=== PATIENT | male | born 1985 | race Caucasian/White ===

== ENCOUNTER 2017-02-13 13:51 | Inpatient (IN) | payer OTHER ==
[~2017-02-13] VITALS: Ht 185.4 cm; Wt 87.5 kg
[2017-02-13 15:16] LABS: *AMPHETAMINE, URINE POSITIVE (NEGATIVE); *BARBITURATE, URINE NEGATIVE (NEGATIVE); *CANNABINOID, URINE POSITIVE (NEGATIVE); *COCCAINE, URINE NEGATIVE (NEGATIVE); *OPIATE, URINE NEGATIVE (NEGATIVE); *PHENCYCLIDINE SCREEN,URINE NEGATIVE (NEGATIVE)
--- NOTE | 2017-02-13 16:00 | NUR ---
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 He is the primary source of information. Patient is admitted under the care of Dr. Benedict to room 314. Urine provided by patient for urine drug screen. Patient appears to be anxious, nervous and restless. Patient denies any allergies. Patient reported history of seizures 2 years ago due to Benzodiazepine withdrawals. Admitting vital signs are as follows; BP 141/94, HR 93, Temp 96.8, respirations 18, SPO2 97%, weight 193 lbs and Height of 6'1. Educated patient regarding unit protocols and policies, patient verbalized understanding.
[2017-02-13 16:08] VITALS: BP 138/85
[2017-02-13] MEDS ORDERED: BACLOFEN 20 MG TABLET PO PRN (16:15)
[2017-02-13] MEDS ORDERED: DIAZEPAM 5 MG TABLET PO PRN (16:15)
[2017-02-13] MEDS ORDERED: THIAMINE HCL 200 MG/2 ML VIAL IM ONE (16:15)
[2017-02-13] MEDS ORDERED: DICYCLOMINE HCL 20 MG TABLET PO PRN (16:15)
[2017-02-13] MEDS ORDERED: MAGNESIUM HYDROXIDE 30 ML LIQUID UDC PO PRN (16:15)
[2017-02-13] MEDS ORDERED: LORAZEPAM 2 MG/1 ML VIAL IM PRN (16:15)
[2017-02-13] MEDS ORDERED: ACETAMINOPHEN 325 MG TABLET PO PRN (16:15)
[2017-02-13] MEDS ORDERED: MAG HYDROX/AL HYDROX/SIMETH 30 ML LIQUID UDC PO PRN (16:15)
[2017-02-13] MEDS ORDERED: IBUPROFEN 600 MG TABLET PO PRN (16:15)
[2017-02-13] MEDS ORDERED: ONDANSETRON 4 MG/2 ML VIAL IM PRN (16:15)
[2017-02-13] MEDS ORDERED: LOPERAMIDE HCL 2 MG CAPSULE PO PRN ×2 (16:15)
[2017-02-13] MEDS ORDERED: ONDANSETRON ODT 4 MG TAB.RAPDIS SL PRN (16:15)
[2017-02-13] MEDS ORDERED: CLONIDINE HCL 0.1 MG TABLET PO PRN (16:15)
[2017-02-13] MEDS ORDERED: DIAZEPAM 10 MG TABLET PO PRN ×2 (16:15)
[2017-02-13] MEDS ORDERED: LURA40TA PO (16:34)
[2017-02-13] MEDS ORDERED: ALPR2TAB7 PO (16:34)
[2017-02-13 16:53] LABS: BASOPHILS # (AUTO) 0.1 K/uL (0.0-8.0); BASOPHILS % (AUTO) 1.4 % (0.0-2.0); EOSINOPHILS # (AUTO) 0.3 K/uL (0.0-0.7); EOSINOPHILS % (AUTO) 5.1 % (0.0-7.0); HEMATOCRIT 48.3 % (40-50); HEMOGLOBIN 15.7 G/DL (14.0-18.0); LYMPHOCYTES # (AUTO) 1.7 K/UL (0.8-4.8); LYMPHOCYTES % (AUTO) 29.1 % (20.5-51.5); MEAN CORPUSCULAR HEMOGLOBIN 30.3 UUG (27.0-31.0); MEAN CORPUSCULAR HGB CONC 33 g/dL (32.0-37.0); MEAN CORPUSCULAR VOLUME 92.9 FL (82.0-92.0); MONOCYTES # (AUTO) 0.5 K/UL (0.1-1.30); MONOCYTES % (AUTO) 9.2 % (0.0-11.0); NEUTROPHILS # (AUTO) 3.3 K/UL (1.8-8.9); NEUTROPHILS % (AUTO) 55.2 % (38.5-71.5); PLATELET COUNT (AUTO) 223 K/UL (150-450); WHITE BLOOD COUNT (AUTO) 5.9 K/UL (4.0-11.2)
[2017-02-13 17:18] LABS: BILIRUBIN,TOTAL 0.3 mg/dL (0.2-1.0); CREATININE 1.1 mg/dL (0.6-1.3); TOTAL PROTEIN, SERUM 7.4 g/dL (6.4-8.2)
--- NOTE | 2017-02-13 17:31 | NUR ---
PRN medication; Patient's current CIWA is 6 manifested by anxiety, agitation, sweating, headache. PRN Valium 5mg PO given for CIWA of 6. Will continue to monitor patient for effectiveness of medication.
[2017-02-13 17:40] LABS: MAGNESIUM 2.1 mg/dL (1.8-2.4)
[2017-02-13] MEDS ORDERED: BECL8.7A6 IH (18:05)
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
--- NOTE | 2017-02-13 18:31 | NUR ---
Re-assessment; Patient's current CIWA score is 4. PRN medication is effective.
--- NOTE | 2017-02-13 19:24 | NUR ---
End of shift note; Patient is AOx4. Patient to start modified Valium taper tonight. Patient remained compliant with treatment plan and medication regime. Patient is on fall and seizure precaution. Met all patient's needs.
[2017-02-13] MEDS ORDERED: MISCELLANEOUS MED XX PRN (19:45)
[2017-02-13 20:00] VITALS: BP 134/86
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
[2017-02-13] MEDS ORDERED: DIAZEPAM 10 MG TABLET PO SCH (21:00)
[2017-02-13] MEDS: LATUDA 20MG PO SCH (21:04)
[2017-02-13] MEDS: diphenhydrAMINE 50 MG CAPSULE PO PRN (22:18)
--- NOTE | 2017-02-13 22:37 | NUR ---
PRN BENADRYL ADMINISTRATION PATIENT REQUESTS FOR SLEEP AID. PRN BENADRYL GIVEN. WILL MONITOR FOR EFFECTIVENESS Addendum: 02/13/17 at 7954 by KAREEM FLORES LVN ERROR: PATIENT WAS GIVEN PRN BENADRYL AT 7269
--- NOTE | 2017-02-13 23:00 | NUR ---
TIFFANIE DIOR RE-ASSESSMENT PATIENT ASLEEP AT THIS TIME. RESPIRATION EVEN AND UNLABORED. SAFETY MEASURES IN PLACE. CALL LIGHT IN REACH. WILL CONTINUE TO MONITOR.
[2017-02-14] VITALS: BP 134/86
[2017-02-14 05:18] VITALS: BP 123/72
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
--- NOTE | 2017-02-14 07:30 | NUR ---
START OF SHIFT Pt 31 y/o male admitted for benzodiazepine withdrawal. Pt received in room on bed with eyes closed resting, but easily arousable to name. Pt alert and oriented to name, place, and time. Perrla. Skin warm and slightly moist to touch. Respirations even and unlabored. It was reported that pt slept for 7 hours last night. Bed on lowest position with side rails x2 up for safety. Call light within reach. No distress noted at this time.
[2017-02-14 08:00] VITALS: BP 142/79
[2017-02-14] MEDS ORDERED: TUBERCULIN,PURIF.PROT.DERIV. 5 TU/0.1 ML TEST ID ONE (09:00)
[2017-02-14] MEDS ORDERED: PATIENT MAY USE OWN MED- MD OK INH SCH (09:00)
[2017-02-14] MEDS: GABAPENTIN 300 MG CAPSULE PO SCH ×2 (09:20→21:08)
[2017-02-14] MEDS: LATUDA 20MG PO SCH ×2 (09:20→21:07)
[2017-02-14] MEDS: MULTIVITAMINS,THERAPEUTIC TABLET PO SCH (09:21)
[2017-02-14] MEDS: DIAZEPAM 10 MG TABLET PO SCH ×4 (09:21→21:07)
[2017-02-14] MEDS: THIAMINE HCL 100 MG TABLET PO SCH (09:21)
[2017-02-14] MEDS: FOLIC ACID 1 MG TABLET PO SCH (09:28)
[2017-02-14 13:02] VITALS: BP 141/94
--- NOTE | 2017-02-14 14:38 | NUR ---
Therapist prompted client about group times. Client stated he will try to attend if he is not too tired.
[2017-02-14 16:57] VITALS: BP 106/62
--- NOTE | 2017-02-14 18:00 | NUR ---
END OF SHIFT Pt 31 y/o male admitted for benzodiazepine withdrawal. Pt alert and oriented to name, place, and time. Perrla. Skin warm and slightly moist to touch. Respirations even and unlabored. Bilateral hand tremors noted. Pt observed mostly in room this morning. Pt attended all group activities. Pt was seen by MD today. Pt medication compliant and tolerated well. No ASE noted. Bed on lowest position with side rails x2 up for safety. Call light within reach. No distress noted at this time.
--- NOTE | 2017-02-14 19:15 | NUR ---
START OF SHIFT : Pt 31 y/o male admitted for benzodiazepine withdrawal on 02/13/2017. Pt received in room on bed with resting, but easily arousable to name. Pt alert and oriented to name, place, and time. Perrla. Skin warm and slightly moist to touch, mild tremor observed. Respirations =16/min, even and unlabored. LAST COWS=4 at 16:00. Safety measures in place : bed on lowest position with side rails x2 up for safety, call light within reach. Will continue to monitor closely and offer help.
[2017-02-14 20:00] VITALS: BP 126/83
[2017-02-15 06:06] LABS: HEPATITIS B SURFACE AG Negative (Negative)
--- NOTE | 2017-02-15 06:39 | NUR ---
END OF SHIFT : Pt 31 y/o male admitted for benzodiazepine withdrawal on 02/13/2017. Pt received in room on bed with resting, but easily arousable to name. Pt alert and oriented to name, place, and time. Perrla. Skin warm and slightly moist to touch, mild tremor observed. Pt remains compliant with the treatment plan. No PRNs were given during my shift. V/S remain WNL. RR=16, even and unlabored, lungs clear upon auscultation, abdomen soft and non- distended. Pt denies nausea, vomiting and diarrhea. LAST CIWA=3 at 0400 , [id number]=[id number] ml, voided x3 , slept 6 hours. Safety measures in place : bed on lowest position with side rails x2 up for safety, call light within reach. Will continue to monitor closely and offer help.
--- NOTE | 2017-02-15 07:41 | NUR ---
START OF SHIFT Pt 31 y/o male admitted for benzodiazepine withdrawal. Pt received in room on bed with eyes closed resting, but easily arousable to name. Pt alert and oriented to name, place, and time. Perrla. Skin warm and slightly moist to touch. Respirations even and unlabored. Bilateral hand tremors noted slightly. It was reported that pt slept for 6 hours last night. Bed on lowest position with side rails x2 up for safety. Call light within reach. No distress noted at this time.
[2017-02-15 08:00] VITALS: BP 108/62
[2017-02-15] MEDS: MULTIVITAMINS,THERAPEUTIC TABLET PO SCH (08:45)
[2017-02-15] MEDS: DIAZEPAM 10 MG TABLET PO SCH ×3 (08:45→21:21)
[2017-02-15] MEDS: THIAMINE HCL 100 MG TABLET PO SCH (08:46)
[2017-02-15] MEDS: FOLIC ACID 1 MG TABLET PO SCH (08:46)
[2017-02-15] MEDS: GABAPENTIN 300 MG CAPSULE PO SCH ×3 (08:46→21:21)
[2017-02-15] MEDS: LATUDA 20MG PO SCH ×2 (08:46→21:21)
--- NOTE | 2017-02-15 11:56 | NUR ---
ONE TIME DOSE Pt was seen by . Ciwa=10. Valium po once per MD order given and tolerated well.
[2017-02-15] MEDS ORDERED: DIAZEPAM 10 MG TABLET PO SCH (12:00)
[2017-02-15] MEDS ORDERED: CLONIDINE HCL 0.1 MG TABLET PO ONE (12:00)
[2017-02-15 12:13] VITALS: BP 130/74
--- NOTE | 2017-02-15 12:56 | NUR ---
ONE TIME DOSE EVAL Pt with ciwa=4 noted. Pt observed in room laying on bed watching television.
[2017-02-15 16:00] VITALS: BP 128/72
--- NOTE | 2017-02-15 18:37 | NUR ---
END OF SHIFT Pt 31 y/o male admitted for benzodiazepine withdrawal. Pt alert and oriented to name, place, and time. Perrla. Skin warm and moist to touch. Respirations even and unlabored. Bilateral hand tremors noted. Pt with periods of anxiety this morning. Pt observed mostly in room this morning. Pt attended group activity this morning. Pt was seen by MD today. Pt medication compliant and tolerated well. No ASE noted. Bed on lowest position with side rails x2 up for safety. Call light within reach. No distress noted at this time.
--- NOTE | 2017-02-15 19:15 | NUR ---
START OF SHIFT : Pt 31 y/o male admitted for benzodiazepine withdrawal on 02/13/2017. Pt alert and oriented to name, place, and time. Perrla. Skin warm and slightly moist to touch, mild tremor observed. Respirations =16/min, even and unlabored. LAST COWS=3 at 16:00. Pt medication compliant and tolerated well. Safety measures in place : bed on lowest position with side rails x2 up for safety, call light within reach. Will continue to monitor closely and offer help.
[2017-02-15 20:00] VITALS: BP 120/85
[2017-02-15] MEDS: CLONIDINE HCL 0.1 MG TABLET PO SCH (21:22)
--- NOTE | 2017-02-16 06:43 | NUR ---
END OF SHIFT NOTE : Pt 31 y/o male admitted for benzodiazepine withdrawal on 02/13/2017. Pt alert and oriented to name, place, and time. Perrla. Skin warm and slightly moist to touch, mild tremor observed. Pt remains compliant with the treatment plan. No PRNs were given during my shift. V/S remain WNL. RR=16, even and unlabored, lungs clear upon auscultation, abdomen soft and non- distended. Pt denies nausea, vomiting and diarrhea. CIWA and COWS taken when pt. is alert during the night, LAST CIWA= 3 at 0400 , [id number] ml, voided x2 , slept 7 hours. Safety measures in place : bed on lowest position with side rails x2 up for safety, call light within reach. Will continue to monitor closely and offer help.
--- NOTE | 2017-02-16 07:25 | NUR ---
Start of Shift Commercial Green Retrofit Architect received report on 31 year old male admitted on 02/13/17 for Xanax and Meth detoxification. Pt has NKA, is a full code and eats a regular diet. PMH of anxiety, Bipolar, asthma and a seizure 2 years ago. Pt currently on a Valium taper, tolerating well. Last CIWA 3 per night nurse. Commercial Green Retrofit Architect encounters pt resting in bed with eyes closed. Respirations even and unlabored. Rise and fall of cheat noted. Bed in low position with wheels locked and side rails up x2, call light within reach. Will continue to monitor, support and encourage according to plan of care.
[2017-02-16 08:30] VITALS: BP 98/55
[2017-02-16] MEDS: CLONIDINE HCL 0.1 MG TABLET PO SCH ×2 (09:00→21:10)
[2017-02-16] MEDS: DIAZEPAM 5 MG TABLET PO SCH ×4 (09:24→21:10)
[2017-02-16] MEDS: THIAMINE HCL 100 MG TABLET PO SCH (09:24)
[2017-02-16] MEDS: MULTIVITAMINS,THERAPEUTIC TABLET PO SCH (09:24)
[2017-02-16] MEDS: GABAPENTIN 300 MG CAPSULE PO SCH ×3 (09:24→21:10)
[2017-02-16] MEDS: LATUDA 20MG PO SCH ×2 (09:24→21:11)
[2017-02-16] MEDS: FOLIC ACID 1 MG TABLET PO SCH (09:24)
--- NOTE | 2017-02-16 09:49 | NUR ---
Pt Endorsement Aluminum Sheet Cutter endorsed care of pt to MABEL Bauer.
--- NOTE | 2017-02-16 10:00 | NUR ---
Endorsement received; Endorsement received from previous nurse. Patient is a 31 year old male admitted on 02/13/17 for Benzo/Meth dependence. Patient was placed on 5 day Valium taper. Patient reported history of anxiety, bipolar disorder, asthma, seizure 2 years ago d/t withdrawals. Patient is on fall and seizure precaution. Bed in lowest position, call light within reach. Will continue to monitor patient.
[2017-02-16 12:00] VITALS: BP 105/62
[2017-02-16 16:00] VITALS: BP 101/74
--- NOTE | 2017-02-16 18:32 | NUR ---
End of shift note; Patient is AOX4. Patient is a 31 year old male admitted on 02/13/17 for Benzo/Meth dependence. Patient was placed on 5 day Valium taper. Patient reported history of anxiety, bipolar disorder, asthma, seizure 2 years ago d/t withdrawals. Patient is on fall and seizure precaution. Patient remained compliant with treatment plan. Medications were effective in reducing withdrawal symptoms. Met all needs.
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
[2017-02-16 20:30] VITALS: BP 145/85
[2017-02-16] MEDS: diphenhydrAMINE 50 MG CAPSULE PO PRN (21:10)
--- NOTE | 2017-02-16 21:10 | NUR ---
PRN Medication Administration Patient is verbalizing inability of falling asleep. PRN Benadryl administered as per order. Will continue to monitor.
--- NOTE | 2017-02-16 22:00 | NUR ---
PRN Medication Reassessment Patient noted in bed sleeping. Breathing even and non labored. No signs of pain or discomfort noted. Patient was given PRN Benadryl for inability of falling asleep. PRN Medication noted to be effective. Will continue to monitor.
[2017-02-17 00:23] VITALS: BP 113/60
[2017-02-17 04:46] VITALS: BP 109/63
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
--- NOTE | 2017-02-17 07:43 | NUR ---
START OF SHIFT Pt 31 y/o male admitted benzodiazepine withdrawal. Pt received in room on bed with eyes closed resting, but easily arousable to name. Pt alert and oriented to name, place, and time. Perrla. Skin warm and slightly moist to touch. Respirations even and unlabored. Bilateral hand tremors noted. It was reported that pt slept for 7 hours last night. Bed on lowest position with side rails x2 up for safety. Call light within reach. No distress noted at this time.
[2017-02-17 08:22] VITALS: BP 102/61
[2017-02-17] MEDS: THIAMINE HCL 100 MG TABLET PO SCH (08:24)
[2017-02-17] MEDS: GABAPENTIN 300 MG CAPSULE PO SCH ×3 (08:25→21:57)
[2017-02-17] MEDS: MULTIVITAMINS,THERAPEUTIC TABLET PO SCH (08:25)
[2017-02-17] MEDS: LATUDA 20MG PO SCH ×2 (08:25→21:54)
[2017-02-17] MEDS: DIAZEPAM 5 MG TABLET PO SCH ×3 (08:25→21:58)
[2017-02-17] MEDS: FOLIC ACID 1 MG TABLET PO SCH (08:25)
[2017-02-17] MEDS: CLONIDINE HCL 0.1 MG TABLET PO SCH ×2 (08:25→21:58)
[2017-02-17 12:18] VITALS: BP 122/72
[2017-02-17] MEDS: MIRALAX 17 GM POWD.PACK PO PRN (13:15)
--- NOTE | 2017-02-17 13:19 | NUR ---
PRN Pt with c/o constipation. Miralox powder prn per MD order given and tolerated well.
[2017-02-17] MEDS ORDERED: BISACODYL 5 MG TABLET.DR PO PRN (14:15)
[2017-02-17] MEDS ORDERED: BISACODYL 10 MG SUPP.RECT RC PRN (14:15)
--- NOTE | 2017-02-17 14:19 | NUR ---
PRN EVAL Pt states had small BM.
[2017-02-17] MEDS: DOCUSATE SODIUM 250 MG CAPSULE PO SCH (14:48)
[2017-02-17] MEDS ORDERED: MIRALAX 17 GM POWD.PACK PO ONE (15:00)
[2017-02-17] MEDS ORDERED: GABAPENTIN 400 MG CAPSULE PO SCH (15:00)
[2017-02-17 16:56] VITALS: BP 114/77
--- NOTE | 2017-02-17 17:42 | NUR ---
PRN Pt with c/o headache 09/27. Motrin po prn per MD order given and tolerated well.
--- NOTE | 2017-02-17 18:31 | NUR ---
END OF SHIFT Pt 31 y/o male admitted for benzodiazepine withdrawal. Pt alert and oriented to name, place, and time. Perrla. Skin warm and slightly moist to touch. Respirations even and unlabored. Bilateral hand tremors noted slightly. Pt observed mostly in room this morning. Pt did not attend group activity this morning. Pt stated he was not feeling well. Pt was seen by MD today. Pt medication compliant and tolerated well. No ASE noted. Bed on lowest position with side rails x2 up for safety. Call light within reach. No distress noted at this time.
--- NOTE | 2017-02-17 18:42 | NUR ---
PRN EVAL Pt states headache 06/30.
--- NOTE | 2017-02-17 19:10 | NUR ---
Start of Shift Patient Received. Patient is in bed awake watching TV, alert and verbally responsive. Breathing even and non labored. No signs of pain or discomfort. Patient is a 31 year old male admitted on 02/13/17 for Benzo Dependence and currently receiving modified 5 day Valium taper. No known allergies. Full Code. Regular Diet. Placed on fall and seizure precautions. Past medical history of anxiety, bipolar disorder, asthma and history of seizures with last seizure noted 2 years ago. Patient is compliant with plan of care and tolerating medications well. Patient was given PRN Motrin with medication effective and PRN Miralax for constipation with no relief noted. Last noted CIWA 3. All needs attended to promptly. Will continue plan of care as ordered.
[2017-02-17 20:05] VITALS: BP 124/82
[2017-02-17] MEDS: diphenhydrAMINE 50 MG CAPSULE PO PRN (21:57)
--- NOTE | 2017-02-17 22:00 | NUR ---
PRN Medication Administration Patient verbalizing inability of falling asleep and continues with increased feelings of constipation. PRN Benadryl and Dulcolax administered as per order. Will continue to monitor.
[2017-02-18 00:32] VITALS: BP 119/62
[2017-02-18 04:40] VITALS: BP 117/67
--- NOTE | 2017-02-18 07:07 | NUR ---
End of Shift Patient is in bed sleeping. Breathing even and non labored. No signs of pain or discomfort noted. Patient is a 31 year old male admitted on 02/13/17 for Benzo Dependence and currently receiving modified 5 day Valium taper. No known allergies. Full Code. Regular Diet. Placed on fall and seizure precautions. Past medical history of anxiety, bipolar disorder, asthma and history of seizures with last seizure noted 2 years ago. Patient is compliant with plan of care and tolerating medications well. Patient was given PRN Benadryl and Dulcolax with PRN Benadryl noted to be effective. Patient slept a total of 7 hours. Last noted CIWA 3. All needs attended to promptly. Will endorse to continue plan of care as ordered. Addendum: 02/18/17 at 0707 by BRANDI BETHEA LVN Amended: Links added.
--- NOTE | 2017-02-18 07:08 | NUR ---
Start of Shift Notes: Received patient in his room. Alert and verbally responsive. Able to make needs known. Respirations even and unlabored. No SOB noted. Skin warm and dry to touch. Abdomen soft and non-distended. BS (+) in all 4 quadrants. No complains of N/V/D or constipation noted. Bladder soft & non-distended. No complains of dysuria noted. Voids independently. Ambulatory ad cait with steady gait. Patient is a 31 year old male admitted for BZO and methamphetamine dependence who was placed on a 5-day Valium taper as ordered. Prior to admission, patient was using 6-8 mg of Xanax, half a gram of methamphetamine and 1 joint a day. Has past medical hx of anxiety, bipolar disorder, asthma and seizures. NKA. FULL CODE. Regular diet. On fall and seizure precautions. Educated patient on his current plan of care for the day and his medication regimen. Encouraged oral fluid intake and encouraged group participation to learn new skills to prevent relapse.
[2017-02-18 08:00] VITALS: BP 122/67
[2017-02-18] MEDS: MIRALAX 17 GM POWD.PACK PO PRN (08:44)
[2017-02-18] MEDS: CLONIDINE HCL 0.1 MG TABLET PO SCH ×2 (08:44→21:26)
[2017-02-18] MEDS: FOLIC ACID 1 MG TABLET PO SCH (08:44)
[2017-02-18] MEDS: THIAMINE HCL 100 MG TABLET PO SCH (08:44)
[2017-02-18] MEDS: LATUDA 20MG PO SCH ×2 (08:44→21:25)
[2017-02-18] MEDS: DIAZEPAM 5 MG TABLET PO SCH ×2 (08:44→21:26)
--- NOTE | 2017-02-18 08:44 | NUR ---
Miralax 17gm PP given: Patient noted with complain of constipation. No relief noted from PRN Dulcolax and PRN Miralax. Miralax 17 gm PO given. Will monitor for effectiveness.
[2017-02-18] MEDS: MULTIVITAMINS,THERAPEUTIC TABLET PO SCH (08:45)
[2017-02-18] MEDS: DOCUSATE SODIUM 250 MG CAPSULE PO SCH (08:45)
[2017-02-18] MEDS ORDERED: GABAPENTIN 400 MG CAPSULE PO SCH (09:00)
[2017-02-18 12:00] VITALS: BP 96/64
[2017-02-18] MEDS: GABAPENTIN 300 MG CAPSULE PO SCH ×2 (14:29→21:25)
[2017-02-18 16:00] VITALS: BP 112/71
[2017-02-18] MEDS ORDERED: DIAZEPAM 5 MG TABLET PO ONE (17:00)
[2017-02-18] MEDS ORDERED: CLONIDINE HCL 0.1 MG TABLET PO ONE (17:00)
--- NOTE | 2017-02-18 17:13 | NUR ---
OT Clonidine and Valium 5 mg PO given: Patient noted with increased anxiety, complains of cold sweats. Appears with moderate enxiety. Pulse 99. Dr. Benedict aware and entered orders for OT CLonidine 0.1mg PO and Valium 5 mg PO, medicated as ordered. Will monitor for effectiveness.
--- NOTE | 2017-02-18 18:13 | NUR ---
Re-assessment: Per patient, PRN Valium was effective in reducing patient's withdrawal symptoms. CIWA 4.
--- NOTE | 2017-02-18 18:55 | NUR ---
End of Shift Notes: Patient continues to be on 5-day Valium taper. Patient is tolerating his 5th day of the taper well. No adverse reactions noted. VS monitored closely during the detox process. No significant abnormalities noted. Withdrawal symptoms were closely monitored. Initial CIWA 3 patient presented with anxiety, mild sweats. Last CIWA 4 at 1813. Per patient, Valium has been helping him with his withdrawal symptoms. PRN Miralax 17GM PO given in AM, with help after 1 hour. No complains of abdominal discomfort noted. OT Clonidine and Valium 5 mg PO given at 1713 with help after 1 hour. Compliant with care and treatment. Actively participated in groups and activities. All needs met and attended. Will continue to monitor closely.
--- NOTE | 2017-02-18 19:15 | NUR ---
START OF SHIFT NOTE : Pt 31 y/o male admitted for benzodiazepine withdrawal on 02/13/2017. Pt received in room on bed resting. Pt alert and oriented to name, place, and time. Perrla. Skin warm and dry to touch, mild tremor observed. Respirations =16/min, even and unlabored. LAST COWS=4 at 18:13 after PRN Valium given. Safety measures in place : bed on lowest position with side rails x2 up for safety, call light within reach. Will continue to monitor closely and offer help.
[2017-02-18 20:00] VITALS: BP 110/69
--- NOTE | 2017-02-18 22:00 | NUR ---
PRN BENADRYL Pt. complains of sleeplessness. PRN BENADRYL given as ordered. Safety measures in place : bed on lowest position with side rails x2 up for safety, call light within reach. Will continue to monitor closely and offer help.
[2017-02-18] MEDS: diphenhydrAMINE 50 MG CAPSULE PO PRN (22:11)
--- NOTE | 2017-02-18 23:00 | NUR ---
RE-ASSESSMENT BARBY Pt. is sleeping , RR=16 , unlabored and even. Safety measures in place : bed on lowest position with side rails x2 up for safety, call light within reach. Will continue to monitor closely and offer help.
--- NOTE | 2017-02-19 06:49 | NUR ---
END OF SHIFT NOTE : Pt 31 y/o male admitted for benzodiazepine withdrawal on 02/13/2017. Pt received in room on bed resting. Pt alert and oriented to name, place, and time. Perrla. Pt remains compliant with the treatment plan. PRN BENADRYL given during my shift. V/S remain WNL. RR=16, even and unlabored, lungs clear upon auscultation, abdomen soft and non- distended. Pt denies nausea, vomiting and diarrhea. CIWA and COWS taken when pt. is alert during the night, LAST CIWA=3 at 0400 , [id number] ml, voided x1 , slept 7 hours. Safety measures in place : bed on lowest position with side rails x2 up for safety, call light within reach. Will continue to monitor closely and offer help.
[2017-02-19 08:00] VITALS: BP 122/71
--- NOTE | 2017-02-19 08:02 | NUR ---
START OF SHIFT NOTE Received report from night nurse, 31 year old male admitted for Benzo Dependence. Pt has a PMH of anxiety, bipolar disorder, asthma and history of seizures with last seizure noted 2 years ago. Pt is cont on 5 day Valium taper, tolerating well. Per endorsement pt received PRN Benadryl effective per night nurse, Slept for 7 hours, last CIWA-4. Received pt in bed awake, alert and oriented x4, educated patient regarding plan of care for the day and medication regimen with good verbal understanding. Safety measures in place. call light kept with in reach, will continue to monitor.
[2017-02-19] MEDS: MULTIVITAMINS,THERAPEUTIC TABLET PO SCH (08:49)
[2017-02-19] MEDS: GABAPENTIN 300 MG CAPSULE PO SCH ×3 (08:49→20:26)
[2017-02-19] MEDS: DOCUSATE SODIUM 250 MG CAPSULE PO SCH (08:50)
[2017-02-19] MEDS: THIAMINE HCL 100 MG TABLET PO SCH (08:50)
[2017-02-19] MEDS: CLONIDINE HCL 0.1 MG TABLET PO SCH ×2 (08:50→20:25)
[2017-02-19] MEDS: FOLIC ACID 1 MG TABLET PO SCH (08:50)
[2017-02-19] MEDS: LATUDA 20MG PO SCH ×2 (08:53→20:26)
[2017-02-19] MEDS ORDERED: DIAZEPAM 5 MG TABLET PO SCH (09:00)
[2017-02-19] MEDS ORDERED: HYDROXYZINE PAMOATE 25 MG CAPSULE PO PRN (11:30)
[2017-02-19 12:00] VITALS: BP 104/58
[2017-02-19 16:00] VITALS: BP 118/71
[2017-02-19] MEDS ORDERED: DIPH50CA37 PO (18:58)
[2017-02-19] MEDS ORDERED: HYDR-3895 PO (18:58)
[2017-02-19] MEDS ORDERED: CLON0.1T14 PO (18:58)
[2017-02-19] MEDS ORDERED: DOCU250C14 PO (18:58)
[2017-02-19] MEDS ORDERED: GABA-534 PO (18:58)
[2017-02-19] MEDS ORDERED: IBUP-1955 PO (18:58)
--- NOTE | 2017-02-19 19:09 | NUR ---
END OF SHIFT NOTE Patient completed his 5 days Valium taper tolerated well. Patient alert and oriented x4, vital signs were stable during shift. Pt scheduled for discharge tomorrow. Skin intact warm and dry to touch. Patient encouraged adequate PO fluid intake as tolerated. Patient encouraged to attend group therapies/sessions to learn new coping skills. Last CIWA-2, Safety measures in place. Call light kept within reach. Patient endorsed to shift coordinator nurse in stable condition.
[2017-02-19 20:00] VITALS: BP 120/81
--- NOTE | 2017-02-19 20:00 | NUR ---
START OF SHIFT NOTE RECEIVED REPORT FROM DAY SHIFT NURSE. PATIENT IS A 31 YEAR OLD MALE ADMITTED FOR BENZODIAZEPINE DEPENDENCE. PATIENT COMPLETED VALIUM TAPER. PATIENT IS MEDICALLY CLEARED TO BE DISCHARGE TOMORROW. PATIENT WITH SEIZURE HISTORY 2 YEARS AGO (BENZO W/D). PATIENT IS COMPLAINT WITH MEDICATION AND TREATMENT PLAN. PATIENT DID NOT REQUIRE ANY PRN MEDICATION. LAST CIWA 2. RECEIVED PATIENT IN ROOM, ALERT AND ORIENTED X 4. RESPIRATION EVEN AND UNLABORED. PATIENT DENIES ANY PAIN AT THIS TIME. NO N/V. ON FALL/SEIZURE PRECAUTION. SAFETY MEASURES IN PLACE. CALL LIGHT IN REACH. WILL CONTINUE TO MONITOR .
[2017-02-19] MEDS: diphenhydrAMINE 50 MG CAPSULE PO PRN (22:42)
--- NOTE | 2017-02-19 22:42 | NUR ---
PRN BENADRYL ADMINISTRATION PATIENT REQUESTS FOR SLEEP AID. PRN BENADRYL GIVEN. WILL MONITOR FOR EFFECTIVENESS
--- NOTE | 2017-02-19 23:42 | NUR ---
TIFFANIE DIOR RE-ASSESSMENT PATIENT ASLEEP AT THIS TIME. RESPIRATION EVEN AND UNLABORED. SAFETY MEASURES IN PLACE. WILL CONTINUE TO MONITOR
--- NOTE | 2017-02-20 | NUR ---
CIWA/VS PATIENT SLEEPING. VS REFUSED. COWS/CIWA DEFERRED . RESPIRATION EVEN AND UNLABORED. RR 15. SAFETY MEASURES IN PLACE. CALL LIGHT IN REACH. WILL CONTINUE TO MONITOR.
--- NOTE | 2017-02-20 04:00 | NUR ---
CIWA/VS PATIENT SLEEPING. VS REFUSED. COWS/CIWA DEFERRED . RESPIRATION EVEN AND UNLABORED. RR 14. SAFETY MEASURES IN PLACE. CALL LIGHT IN REACH. WILL CONTINUE TO MONITOR.
--- NOTE | 2017-02-20 07:13 | NUR ---
END OF SHIFT NOTE PATIENT IS A 31 YEAR OLD MALE ADMITTED FOR BENZODIAZEPINE DEPENDENCE. PATIENT COMPLETED VALIUM TAPER. PATIENT IS MEDICALLY CLEARED TO BE DISCHARGE TODAY. PATIENT WITH SEIZURE HISTORY 2 YEARS AGO (BENZO W/D). PATIENT IS COMPLAINT WITH MEDICATION AND TREATMENT PLAN. PATIENT WAS GIVEN PRN BENADRYL FOR SLEEP. PATIENT REMAIN ALERT AND ORIENTED X 4. RESPIRATION EVEN AND UNLABORED. NO SOB. PATIENT DENIES ANY PAIN DURING SHIFT. ON FALL/SEIZURE PRECAUTION. SAFETY MEASURES IN PLACE. CALL LIGHT IN REACH. WILL CONTINUE TO MONITOR . SLEPT 7 HOURS. FLUID INTAKE OF 1,855. VOIDED X 3. NO BM. LAST CIWA 0.
--- NOTE | 2017-02-20 07:32 | NUR ---
START OF SHIFT Received report from night nurse. 31 year old male patient admitted on 02/13/17 for methamphetamine and benzo withdrawals. Pt has completed 5 day Valium taper and is medically cleared for discharge. Pt does not present with s/s of withdrawals. Most recent CIWA is 0 per night report. PRN Benadryl administered at night and effective. pt slept for 7 hours. All needs met at this time. Will continue to monitor.
[2017-02-20 08:05] VITALS: BP 122/84
[2017-02-20 08:40] VITALS: BP 124/86
[2017-02-20] MEDS: FOLIC ACID 1 MG TABLET PO SCH (08:40)
[2017-02-20] MEDS: GABAPENTIN 300 MG CAPSULE PO SCH (08:40)
[2017-02-20] MEDS: THIAMINE HCL 100 MG TABLET PO SCH (08:40)
[2017-02-20] MEDS: MULTIVITAMINS,THERAPEUTIC TABLET PO SCH (08:40)
[2017-02-20] MEDS: LATUDA 20MG PO SCH (08:40)
[2017-02-20] MEDS: DOCUSATE SODIUM 250 MG CAPSULE PO SCH (08:40)
[2017-02-20] MEDS: CLONIDINE HCL 0.1 MG TABLET PO SCH (08:40)
--- NOTE | 2017-02-20 09:40 | NUR ---
D/C NOTE Pt is A/O x4. V/S remain WNL. Pt denies SI/HI or hallucinations. Pt shows no s/s of acute withdrawal at this time, and is stable. MD has medically cleared pt for d/c . Education on Hepatitis C, smoking cessation and medication side effects provided. Pt verbalizes understanding. All pt belongings are in belonging bag, including prescriptions, and home medications. Refuses PNU vaccination. Pt is being accompanied by [facility] at this time to be transported to rehab. All needs met.
== END 2017-02-20 09:40 | disposition other institution (70) | DRG 895 ==
LOC: SRC 14:46
PROVIDERS: ADMIT Internal Medicine; ATTEND Internal Medicine
PROC: HZ2ZZZZ Detoxification Services for Substance Abuse Treatment (ICD-10-PCS; principal; 2017-02-13)
PROC: HZ41ZZZ Group Counseling for Substance Abuse Treatment, Behavioral (ICD-10-PCS; 2017-02-14)
PROC: HZ31ZZZ Individual Counseling for Substance Abuse Treatment, Behavioral (ICD-10-PCS; 2017-02-14)
DX: F13.232 Sedative, hypnotic or anxiolytic dependence with withdrawal with perceptual disturbance (principal); I15.9 Secondary hypertension, unspecified; F31.9 Bipolar disorder, unspecified; F14.10 Cocaine abuse, uncomplicated; F41.9 Anxiety disorder, unspecified; F10.10 Alcohol abuse, uncomplicated; Y90.9 Presence of alcohol in blood, level not specified; Z81.1 Family history of alcohol abuse and dependence; F17.220 Nicotine dependence, chewing tobacco, uncomplicated; Z91.89 Other specified personal risk factors, not elsewhere classified; F15.23 Other stimulant dependence with withdrawal; K59.00 Constipation, unspecified; F11.90 Opioid use, unspecified, uncomplicated; F12.10 Cannabis abuse, uncomplicated
CPT/HCPCS: 36415; 70030-TC; 80307; 80324; 80346; 80349; 83735; 85025; 86592; 86705; 86803; 87340; 87806; A4663; G0480; J3411; Q0163